=== PATIENT | male | born 1985 | race Caucasian/White ===

== ENCOUNTER 2024-06-30 19:40 | Emergency (ER) | payer BC ==
[2024-06-30] MEDS ORDERED: ONDANSETRON 4 MG/2 ML VIAL ONE (20:01)
[2024-06-30] MEDS ORDERED: CIPROFLOXACIN 400mg IV 0 MG/0 ML BAG IV ONE (20:02)
[2024-06-30] MEDS ORDERED: MORPHINE 4 MG/ML SYR ONE (20:02)
[2024-06-30] MEDS ORDERED: NA CHLORIDE 0.9% 1,000 ML ONE (20:02)
[2024-06-30] MEDS ORDERED: FAMOTIDINE 20 MG/2 ML VIAL IV ONE (20:02)
[2024-06-30] MEDS ORDERED: METRONIDAZOLE 500mg IVPB 0 MG/0 ML BAG IV ONE (20:02)
[2024-06-30 20:28] LABS: Absolute Basophils 0.1 K/uL (0-0.5); Absolute Eosinophils 0.3 K/uL (0-0.5); Absolute Monocytes 0.7 K/uL (0.1-1.3); Basophils % 0.6 % (0-1.3); Eosinophils % 3.2 % (0-4.4); Hematocrit 45.2 % (39.6-49.0); Lymphocytes % 22.2 % (15.3-44.8); MCH 28.2 pg (27.0-35.0); MCHC 35.3 g/dL (32.0-36.0); MCV 79.7 fL (80-100); MPV 8.1 fL (7.6-11.3); Monocytes % 7.3 % (3.3-12.3); Neutrophils % 66.7 % (41.7-73.7); Nucleated Red Blood Cells % 0.1 % (0-0); Platelets 306 thou/uL (152-406); RBC Red Blood Cell Count 5.67 M/uL (4.33-5.43); Red Cell Distribution Width 13.4 % (12.1-15.2)
[2024-06-30 20:45] LABS: Albumin 3.7 g/dL (3.4-5.0); Albumin/Globulin Ratio 0.9 (1.1-1.8); Anion Gap 10.7 mEq/L (5.0-15.0); Bilirubin Total 0.5 mg/dL (0.2-1.0); Globulin 3.9 g/dL (2.3-3.5); Potassium 3.7 mEq/L (3.5-5.1); Protein, Total 7.6 g/dL (6.4-8.2)
--- NOTE | 2024-06-30 21:27 | RAD REPORT ---
EXAMINATION: CT ABDOMEN AND PELVIS WITH CONTRAST CLINICAL INDICATION: Abdominal pain. Rectal mass and bleeding TECHNIQUE: CT abdomen and pelvis was performed, after the administration of 100 cc Isovue-300.. Sagit samira and coronal reconstructions were obtained. One or more of the following dose reduction techniques were used: Automated exposure control, adjustment of the mA and kV according to patient si ze, and iterative reconstruction. Unless otherwise specified, incidental findings do not require dedicated imaging follow-up. [id number]. Oral contrast was not given which limits evaluation of bowel and appendix. COMPARISON: .None FINDINGS: Liver, spleen, pancreas, adrenals and kidneys appear unremarkable No evidence of diverticulitis.. A rectal mass is not seen but can be missed by CT. Normal appendix. Small periumbilical hernia. Large right inguinal hernia contains portion of bladder. Moderate left inguinal hernia contains fat. : IMPRESSION: Large right inguinal hernia contains portion of bladder. Moderate left hernia contains fat
[2024-06-30 22:15] LABS: Specific Gravity > 1.030 (1.005-1.030); Urine Bilirubin NEGATIVE (Negative); Urine Blood Negative (Negative); Urine Clarity Clear (Clear); Urine Color Light-Yellow (Yellow); Urine Glucose NEGATIVE (Negative); Urine Ketones NEGATIVE (Negative); Urine Microscopic Reflex YN NO UMIC; Urine Nitrite NEGATIVE (Negative); Urine Protein NEGATIVE (Negative); Urine Urobilinogen Normal (Normal); Urine pH 6.5 (5.0-7.0)
--- NOTE | 2024-06-30 22:15 | ER ---
Nurse's Notes [facility] Name: Jenaro Wheat Age: 38 yrs Sex: Male : 1985 Arrival Date: 06/30/2024 Time: 19:40 Bed 12 Private MD: Diagnosis: GI Bleed/ Gastrointestinal hemorrhage, unspecified;Episodic rectal bleeding, Internal Hemorrhoids, Bilateral Inguinal Hernias Presentation: 06/30 19:53 Chief complaint: Patient states: rectal bleeding since this afternoon...will not stop, br2 seeping through clothes. hx of hemorroids in the past and colon polyps. Coronavirus screen: Client denies travel out of the [place] in the last 14 days. Ebola Screen: Patient denies exposure to infectious person. Patient denies travel to an Ebola-affected area in the 21 days before illness onset. Initial Sepsis Screen: Does the patient meet any 2 criteria? No. Patient's initial sepsis screen is negative. Does the patient have a suspected source of infection? No. Patient's initial sepsis screen is negative. Risk Assessment: Do you want to hurt yourself or someone else? Patient reports no desire to harm self or others. Onset of symptoms was June 30, 2024. 19:53 Method Of Arrival: Ambulatory br2 19:53 Acuity: SANG 3 br2 Triage Assessment: 19:53 General: Appears in no apparent distress. uncomfortable, Behavior is calm, cooperative. br2 Pain: Denies pain. Complains of pain in gluteal cleft. EENT: No signs and/or symptoms were reported regarding the EENT system. Historical: - Allergies: 20:15 NKDA; sp4 - Immunization history:: Adult Immunizations not up to date. - Infectious Disease History:: Denies. - Social history:: Smoking status: Patient/guardian denies using tobacco, Patient uses alcohol, occasionally. - Family history:: not pertinent. Screenin:45 [facility] ED Fall Risk Assessment (Adult) History of falling in the last 3 months, br2 including since admission No falls in past 3 months (0 pts) Confusion or Disorientation No (0 pts) Intoxicated or Sedated No (0 pts) Impaired Gait No (0 pts) Mobility Assist Device Used No (0 pt) Altered Elimination No (0 pt) Score/Fall Risk Level 0 - 2 = Low Risk Oriented to surroundings. Abuse screen: Denies threats or abuse. Denies injuries from another. Nutritional screening: No deficits noted. Tuberculosis screening: No symptoms or risk factors identified. Assessment: 19:45 Reassessment: Patient and/or family updated on plan of care and expected duration. Pain br2 level reassessed. Patient is alert, oriented x 3, equal unlabored respirations, skin warm/dry/pink. General: Appears uncomfortable, Behavior is calm, cooperative. Pain: Denies pain. Neuro: José Agitation-Sedation Scale (RASS): 0 - Alert and Calm Level of Consciousness is awake, alert, obeys commands, Oriented to person, place, time, situation. Cardiovascular: Capillary refill < 3 seconds. Respiratory: Airway is patent Respiratory effort is even, unlabored, Respiratory pattern is regular, symmetrical. GI: Reports rectal bleeding. : No signs and/or symptoms were reported regarding the genitourinary system. EENT: No signs and/or symptoms were reported regarding the EENT system. Derm: No signs and/or symptoms reported regarding the dermatologic system. Musculoskeletal: Circulation, motion, and sensation intact. Capillary refill < 3 seconds, Range of motion: intact in all extremities. 22:12 Reassessment: No changes from previously documented assessment. Patient and/or family br2 updated on plan of care and expected duration. Pain level reassessed. Patient is alert, oriented x 3, equal unlabored respirations, skin warm/dry/pink. Patient denies pain at this time. Vital Signs: 19:53 BP 165 / 105; Pulse 104; Resp 18; Temp 97.5; Pulse Ox 97% on R/A; Weight 108.86 kg; br2 Height 6 ft. 3 in. ; Pain 0/10; 21:39 BP 151 / 92; Pulse 77; Resp 18 S; Pulse Ox 100% on R/A; Pain 0/10; br2 22:28 BP 140 / 84; Pulse 70; Resp 18 S; Pulse Ox 100% on R/A; Pain 0/10; br2 19:53 Body Mass Index 30.00 (108.86 kg, 190.5 cm) br2 19:53 Pain Scale: Adult br2 21:39 Pain Scale: Adult br2 22:28 Pain Scale: Adult br2 Lacey Coma Score: 20:15 Eye Response: spontaneous(4). Motor Response: obeys commands(6). Verbal Response: sp4 oriented(5). Total: 15. ED Course: 19:43 Patient arrived in ED. ra3 19:45 Placed in gown. Bed in low position. Call light in reach. Side rails up X 1. Provided br2 Education on: plan of care. 19:46 Ophelia Kerns, RN is Primary Nurse. br2 19:48 Guy Patel MD is Attending Physician. ketty 19:53 Arm band placed on. br2 19:56 Triage completed. br2 20:02 Attending Physician role handed off by Guy Patel MD sp4 20:02 Lionel Begum MD is Attending Physician. sp4 20:29 Inserted saline lock: 20 gauge in right antecubital area, using aseptic technique. br2 Blood collected. Flushed with 10 mL NS. 20:30 CMP Sent. br2 20:30 Lipase Sent. br2 21:04 CT Abd/Pelvis - IV Contrast Only In Process Unspecified. EDMS 22:13 Man Mello MD is Referral Physician. sp4 22:27 IV discontinued, intact, bleeding controlled, No redness/swelling at site. Pressure br2 dressing applied. 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 br2 Administered Medications: 20:11 Not Given (Physician Discretion): [id number] mg 100 ml IVPB at 200 ml/hr once sp4 over 30 mins 20:12 CANCELLED (Physician Discretion): morphineor iv 4 mg IVP once over 4 mins sp4 20:12 CANCELLED (Physician Discretion): [id number] mg 200 ml IVPB once over 60 mins sp4 20:29 Drug: Famotidine IVP 20 mg IVP once; dilute with 10 mL 0.9% NaCl; give over 2 minutes br2 Route: IVP; Site: right antecubital; 22:30 Follow up: Response: No adverse reaction br2 20:29 Drug: Ondansetron IVP 4 mg IVP once; over 2 minutes Route: IVP; Site: right antecubital;br2 22:30 Follow up: Response: No adverse reaction br2 20:29 Drug: NS 0.9% IV 1000 ml IV at 1 bolus Per protocol; to be given as a bolus over 60 br2 minutes Route: IV; Rate: 1 bolus; Site: right antecubital; 22:30 Follow up: Response: No adverse reaction; IV Intake: 1000ml br2 20:30 Drug: Pantoprazole IVP 80 mg IVP once Route: IVP; Site: right antecubital; br2 22:29 Follow up: Response: No adverse reaction br2 Medication: 22:28 VIS not applicable for this client. br2 Intake: 22:30 IV: 1000ml; Total: 1000ml. br2 Outcome: 22:14 Discharge ordered by spDeclan 22:27 Discharged to home ambulatory, br2 22:27 Condition: stable 22:27 Discharge instructions given to patient, Instructed on discharge instructions, follow up and referral plans. Demonstrated understanding of instructions, follow-up care, 22:29 Patient left the ED. br2 Signatures: Dispatcher [employer] EDGuy Kennedy MD MD cha Potepalov, Sergey, MD MD sp4 Jeri Kingsley ra3 Ophelia Kerns RN RN br2
--- NOTE | 2024-06-30 22:15 | EDPHYS ---
Physician Documentation [facility] Name: Jenaro Wheat Age: 38 yrs Sex: Male : 1985 Arrival Date: 06/30/2024 Time: 19:40 Bed 12 Private MD: ED Physician Lionel Begum HPI: 06/30 20:02 This 38 yrs old Male presents to ER via Ambulatory with complaints of Rectal sp4 Bleeding. 20:13 38-year-old male who is basically healthy but suffers from intermittent rectal sp4 bleeding. Patient developed sporadic rectal bleeding approximately 4 years ago while at [place]. Patient had several colonoscopies last one 1 year ago at [facility] that discovered some internal hemorrhoids but otherwise no other problems. Today bleeding has worsened patient reports moderate bleeding that is painless. . Historical: - Allergies: 20:15 NKDA; sp4 - Immunization history:: Adult Immunizations not up to date. - Infectious Disease History:: Denies. - Social history:: Smoking status: Patient/guardian denies using tobacco, Patient uses alcohol, occasionally. - Family history:: not pertinent. ROS: 20:15 Constitutional: Negative for fever, chills, and weight loss, positive painless rectal sp4 bleeding 20:15 All other systems are negative, Exam: 20:15 Constitutional: This is a well developed, well nourished patient who is awake, alert, sp4 and in no acute distress. Head/Face: Normocephalic, atraumatic. Eyes: Pupils equal round and reactive to light, extra-ocular motions intact. Lids and lashes normal. Conjunctiva and sclera are not injected. Cornea within normal limits. Periorbital areas with no swelling, redness, or edema. ENT: Nares patent. No nasal discharge, no septal abnormalities noted. Tympanic membranes are normal and external auditory canals are clear. Oropharynx with no redness, swelling, or masses, exudates, or evidence of obstruction, uvula midline. Mucous membranes moist. Neck: Trachea midline, no thyromegaly or masses palpated, and no cervical lymphadenopathy. Supple, full range of motion without nuchal rigidity, or vertebral point tenderness. Chest/axilla: Normal chest wall appearance and motion. Nontender with no deformity. No lesions are appreciated. Cardiovascular: Regular rate and rhythm with a normal S1 and S2. No gallops, murmurs, or rubs. Normal PMI, no JVD. No pulse deficits. Respiratory: Lungs have equal breath sounds bilaterally, clear to auscultation and percussion. No rales, rhonchi or wheezes noted. No increased work of breathing, no retractions or nasal flaring. Abdomen/GI: Soft, with normal bowel sounds. No distension or tympany. No guarding or rebound. No evidence of tenderness throughout. Back: No spinal tenderness. No costovertebral tenderness. Male : Normal genitalia with no discharge or lesions. Positive for dark red blood per rectum , associated with blood clots also positive for appendage like lesion possibly internal hemorrhoid. No signs of fissures no signs of external hemorrhoids. Normal anal tone Skin: Warm, dry with normal turgor. Normal color with no rashes, no lesions, and no evidence of cellulitis. MS/ Extremity: Pulses equal, no cyanosis. Neurovascular intact. Full, normal range of motion. Neuro: Awake and alert, GCS 15, oriented to person, place, time, and situation. Cranial nerves II-XII grossly intact. Motor strength 5/5 in all extremities. Sensory grossly intact. Psych: Awake, alert, with orientation to person, place and time. Behavior, mood, and affect are within normal limits Vital Signs: 19:53 BP 165 / 105; Pulse 104; Resp 18; Temp 97.5; Pulse Ox 97% on R/A; Weight 108.86 kg; br2 Height 6 ft. 3 in. ; Pain 0/10; 21:39 BP 151 / 92; Pulse 77; Resp 18 S; Pulse Ox 100% on R/A; Pain 0/10; br2 22:28 BP 140 / 84; Pulse 70; Resp 18 S; Pulse Ox 100% on R/A; Pain 0/10; br2 19:53 Body Mass Index 30.00 (108.86 kg, 190.5 cm) br2 19:53 Pain Scale: Adult br2 21:39 Pain Scale: Adult br2 22:28 Pain Scale: Adult br2 Lacey Coma Score: 20:15 Eye Response: spontaneous(4). Motor Response: obeys commands(6). Verbal Response: sp4 oriented(5). Total: 15. MDM: 19:48 Medical Screening Exam initiated ketty 22:11 ED course: EXAMINATION: CTABDOMEN AND PELVIS WITH CONTRAST CLINICAL INDICATION: sp4 Abdominal pain. Rectal mass and bleeding TECHNIQUE: CT abdomen and pelvis was performed, after the administration of 100 cc Isovue-300.. Sagittal and coronal reconstructions were obtained. One or more of the following dose reduction techniques were used: Automated exposure control, adjustment of the mA and kV according to patient size, and iterative reconstruction. Unless otherwise specified, incidental findings do not require dedicated imaging follow-up. [id number]. Oral contrast was not given which limits evaluation of bowel and appendix. COMPARISON: .None FINDINGS: Liver, spleen, pancreas, adrenals and kidneys appear unremarkable No evidence of diverticulitis.. A rectal mass is not seen but can be missed by CT. Normal appendix. Small periumbilical hernia. Large right inguinal hernia contains portion of bladder. Moderate left inguinal hernia contains fat. : IMPRESSION: Large right inguinal hernia contains portion of bladder. Moderate left hernia contains fat . 07/01 01:47 Differential diagnosis: hemorrhoids, fissure, abscess, pilonidal cyst, condyloma. Data sp4 reviewed: vital signs, nurses notes, lab test result(s), radiologic studies, CT scan. Consideration of Admission/Observation Escalation of care including admission/observation considered. ED course: Based on examination with suspect internal hemorrhoid with bleeding. Patient was referred to Dr. Mello here for examination in the office and further management. Additional discovery was made of bilateral inguinal hernias. Patient was also referred to Dr. Mello here for hernia repairs.. 06/30 19:51 Order name: CBC with Diff; Complete Time: 21:51 [facility] 06/30 19:51 Order name: CMP; Complete Time: 21:51 ketty 06/30 19:51 Order name: Lipase; Complete Time: 21:51 ketty 06/30 19:51 Order name: Urinalysis w/ reflexes; Complete Time: 05:16 [facility] 06/30 20:12 Order name: CT Abd/Pelvis - IV Contrast Only; Complete Time: 21:51 sp4 06/30 19:51 Order name: IV Saline Lock; Complete Time: 20:30 [facility] 06/30 19:51 Order name: Labs collected and sent; Complete Time: 20:30 [facility] Administered Medications: 06/30 20:11 Not Given (Physician Discretion): [id number] mg 100 ml IVPB at 200 ml/hr once sp4 over 30 mins 20:12 CANCELLED (Physician Discretion): morphineor iv 4 mg IVP once over 4 mins sp4 20:12 CANCELLED (Physician Discretion): [id number] mg 200 ml IVPB once over 60 mins sp4 20:29 Drug: Famotidine IVP 20 mg IVP once; dilute with 10 mL 0.9% NaCl; give over 2 minutes br2 Route: IVP; Site: right antecubital; 22:30 Follow up: Response: No adverse reaction br2 20:29 Drug: Ondansetron IVP 4 mg IVP once; over 2 minutes Route: IVP; Site: right antecubital;br2 22:30 Follow up: Response: No adverse reaction br2 20:29 Drug: NS 0.9% IV 1000 ml IV at 1 bolus Per protocol; to be given as a bolus over 60 br2 minutes Route: IV; Rate: 1 bolus; Site: right antecubital; 22:30 Follow up: Response: No adverse reaction; IV Intake: 1000ml br2 20:30 Drug: Pantoprazole IVP 80 mg IVP once Route: IVP; Site: right antecubital; br2 22:29 Follow up: Response: No adverse reaction br2 Disposition Summary: 06/30/24 22:14 Discharge Ordered Problem: new sp4 Symptoms: have improved sp4 Condition: Stable sp4 Diagnosis - GI Bleed/ Gastrointestinal hemorrhage, unspecified sp4 - Episodic rectal bleeding, Internal Hemorrhoids, Bilateral Inguinal Hernias sp4 Followup: sp4 - With: Man Mello MD - When: 7 - 10 days - Reason: Recheck today's complaints Discharge Instructions: - Discharge Summary Sheet sp4 - Rectal Bleeding sp4 - Inguinal Hernia, Adult, [id number] sp4 Forms: - Patient Portal Instructions sp4 Signatures: Dispatcher [employer] EDGuy Kennedy MD MD cha Potepalov, Sergey, MD MD sp4 Ophelia Kerns RN RN br2 Corrections: (The following items were deleted from the chart) 20:12 19:51 morphine IVP or IV 4 mg IVP once over 4 mins ordered. ketty sp4 20:12 19:51 Ciprofloxacin IVPB 400 mg 200 ml IVPB once over 60 mins ordered. ketty sp4 20:55 19:52 Abdomen Pelvis W Con+CT.RAD.BRZ ordered. EDMS EDMS
[2024-06-30 22:53] VITALS: TEMP 97.5
[2024-06-30 23:04] VITALS: O2SAT 100
[2024-06-30 23:06] VITALS: BP 151/92
== END 2024-06-30 22:29 | disposition home or self-care (01) ==
LOC: ER 19:40
DX: K92.2 Gastrointestinal hemorrhage, unspecified (principal); K64.8 Other hemorrhoids; K40.20 Bilateral inguinal hernia, without obstruction or gangrene, not specified as recurrent
CPT/HCPCS: 85025; 36415; 81003; 83690; 80053; 74177; 96375; 96374; 99284; Q9967; J2405; J7030; J0744

== ENCOUNTER 2024-07-12 11:12 | Day surgery (SDC) | payer BC ==
[2024-07-12] MEDS: Ringers Lactate 1,000 ML IV ONE (11:45)
[2024-07-12] MEDS ORDERED: ONDANSETRON 4 MG/2 ML VIAL ONE (11:47)
[2024-07-12] MEDS ORDERED: propofoL 200 MG/20 ML VIAL IV ONE (11:47)
[2024-07-12] MEDS ORDERED: KETOROLAC 30 MG/ML INJ ONE (11:47)
[2024-07-12] MEDS ORDERED: MIDAZOLAM HCL 2 MG/2 ML INJ ONE (11:47)
[2024-07-12] MEDS ORDERED: FENTANYL CITR 100 MCG/2 ML ONE (11:47)
[2024-07-12] MEDS ORDERED: LIDOCAINE HCL/EPINEPHRINE 20 ML MDV ONE (11:56)
[2024-07-12] MEDS: LIDOCAINE 1% MPF 5 ML VIAL ONE (12:03)
[2024-07-12] MEDS: CEFOXITIN SODIUM 2 GM/VIAL ONE (12:03)
[2024-07-12] MEDS ORDERED: LIDOCAINE JELLY 2% 5 ML SYRINGE TOP ONE (12:10)
[2024-07-12] MEDS ORDERED: MORPHINE 10 MG/ML VIAL ONE (12:48)
--- NOTE | 2024-07-12 13:14 | P.OP ---
Preoperative diagnosis: Internal Anal Hemorrhoids Postoperative diagnosis: Internal Anal Hemorrhoids Primary procedure: Exam under anesthesia Secondary procedure: Excision of LEFT Lateral Column Hemorrhoids Anesthesia: GETA + Local Estimated blood loss: <10cc Specimen: Hemorrhoids Findings: Grade III Internal Anal Hemorrhoids Complications: None Transferred to: Recovery Room Condition: Good
--- NOTE | 2024-07-12 14:22 | OP ---
Date of Procedure: 07/12/2024 Surgeon: Man Mello MD, Preoperative Diagnosis: Internal anal hemorrhoids. Postoperative Diagnoses: Internal anal hemorrhoids. Procedure Performed: 1.Exam under anesthesia. 2.Excision of left lateral column hemorrhoids. Anesthesia: General endotracheal plus local with 1% lidocaine with epinephrine. Estimated Blood Loss: 2 cc. Specimen: Hemorrhoids. Findings: Grade 3 internal anal hemorrhoids noted. Complications: None. Disposition: The patient transferred to recovery room in good condition. Procedure In Detail: After informed consent was obtained, patient was brought to the operating room, prepped and draped in the usual sterile fashion. After adequate anesthesia was achieved, I performe d sequential dilatation of the anal vault using progressively larger anoscopes ultimately visualizing a left lateral enlarged grade 3 internal hemorrhoid with evidence of recent prolapse and hemorrhage. I demarcated the anoderm mucosa with the electrocautery down through that tissue ultimately separat ing the anoderm from the muscularis underneath using blunt dissection. After this was performed, the hemorrhoid was removed using the LigaSure device, ligating the blood vessel at this point, sent it o ff for pathologic examination. The left lateral column hemorrhoids were removed. The area was copio usly irrigated and then the mucosa over the top was imbricated and closed using a running 3-0 chromic suture with good approximation of tissues. No hemostatic maneuvers were required at the end of the procedure. The area was copiously irrigated once again. The other anal hemorrhoid columns were insp ected and found to be small, grade 1 internal hemorrhoids, at this point, without need for any interv ention at this point. I then placed a Gelfoam soaked in 2% lidocaine into the anal canal slightly pr otruding from the anal canal to allow for application in the area and a sterile dressing was placed o mode top. The patient tolerated the procedure without incident or complication, transferred to PACU i n good condition. All counts were correct at the end of the case. TK/MODL Voice ID: [id number] Report ID: [id number]
--- NOTE | 2024-07-13 11:59 | EKG ---
Test Date: 2024-07-11 Test Time: 09:40:48 Sales And Distribution Clerk: CHARLIE MEASUREMENT RESULTS: Intervals: Rate: 64 WA: 128 QRSD: 90 QT: 384 QTc: 396 [place]: P: 49 WA: 128 QRS: 53 T: 55 INTERPRETIVE STATEMENTS: Normal sinus rhythm Normal ECG No previous ECG available for comparison Electronically Signed On 07-13-24 11:57:03 SERVICE DESK DIRECTOR by Clemente Welch
[2024-07-14 02:13] VITALS: BP 144/85; TEMP 98; O2SAT 96
== END 2024-07-12 14:38 | disposition home or self-care (01) ==
LOC: OR 11:12
PROVIDERS: ATTEND Surgery
PROC: 06BY0ZC Excision of Hemorrhoidal Plexus, Open Approach (ICD-10-PCS; principal; 2024-07-12 13:15)
DX: K64.8 Other hemorrhoids (principal)
CPT/HCPCS: 88304; 93005; J0694; J2003; J2250; J2405; J2704; J3010; J7120

== ENCOUNTER → 2024-08-10 | Day surgery (SDC) | payer BC ==
[2024-08-08 12:44] LABS: Anion Gap 8.8 mEq/L (5.0-15.0); Potassium 3.8 mEq/L (3.5-5.1)
[~2024-08-10] MED LIST: FENTANYL CITR 100 MCG/2 ML ONE; GLYCOPYRROLATE 0.2 MG/ML SYR ONE; HYDROMORPHONE HCL 1 MG/ML INJ ONE; KETOROLAC 30 MG/ML INJ ONE; LIDOCAINE 2% MPF 5 ML VIAL ONE; MIDAZOLAM HCL 2 MG/2 ML INJ ONE; ONDANSETRON 4 MG/2 ML VIAL ONE; ROCURONIUM 50 MG/5 ML VIAL IV ONE; dexAMETHasone 10 MG/ML VIAL ONE; propofoL 200 MG/20 ML VIAL IV ONE
[2024-08-10] MEDS: Ringers Lactate 1,000 ML IV ONE ×2 (09:50→13:00)
[2024-08-10] MEDS: CEFAZOLIN SODIUM 2 GM/VIAL ONE (11:19)
[2024-08-10] MEDS: LIDOCAINE HCL/EPINEPHRINE 20 ML MDV ONE (11:43)
--- NOTE | 2024-08-10 13:32 | P.OP ---
Preoperative diagnosis: Bilateral Inguinal Hernias Postoperative diagnosis: Bilateral Inguinal Hernias Primary procedure: Open Bilateral Inguinal Hernia Repair with Mesh Anesthesia: GETA + Local Estimated blood loss: <5cc Specimen: Cord Lipoma Findings: Incarcerated Bladder, Small Bowel Complications: None Implants: Large Bard Perfix Plug and Patch x 2 Transferred to: Recovery Room Condition: Good
[2024-08-10] MEDS: HYDROMORPHONE HCL 1 MG/ML INJ ONE (14:23)
[2024-08-10 14:29] VITALS: O2SAT 98
[2024-08-10] MEDS: HYDROCODONE/APAP 10/325 TAB ONE (15:00)
[2024-08-10 17:10] VITALS: BP 144/85; TEMP 97.2
--- NOTE | 2024-08-11 00:35 | OP ---
Date of Procedure: 08/10/2024 Surgeon: Man Mello MD, Preoperative Diagnosis: Bilateral inguinal hernias. Postoperative Diagnosis: Bilateral inguinal hernias. Procedure Performed: Open bilateral inguinal hernia repair with mesh. Anesthesia: General endotracheal plus local, 1% lidocaine with epinephrine. Estimated Blood Loss: Less than 5 cc. Specimen: Cord lipoma. Findings: 1. Bilateral external oblique aponeurosis were thin and alveolar. 2. Bladder was contained within the inguinal hernia. 3. 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 Complications: None. Implants: Bard PerFix Plug and Patch hernia repair system. Large plug and patch utilized. Disposition: The patient was transferred to recovery room in good condition. Procedure In Detail: After informed consent was obtained, the patient was brought to the operating r oom, prepped in the usual sterile fashion. After adequate anesthesia was achieved, I made an inguina l incision on the left side down to subcutaneous tissues, ultimately down through the Camper fat and Vick fascia to expose the external oblique aponeurosis. This was found to be quite thin and alveol ar. At this point, I opened this sharply with a 15 blade and opened it to the deep ring using Metzen micky scissors. It was significantly thin and alveolar, however, requiring minimal dissection in this area. I encircled the spermatic cord and structures, which were in close apposition to the inguinal hernia contents which were noted. After encircling the spermatic cord and structures, I performed a careful dissection to remove the hernia contents, which included Evans type hernia with partial po rtion of the small bowel wall, which was evident in this area. This was reduced in the normal anatom ic position. There appeared to be no injury or discoloration to the small bowel. It was quite easy to reduce at this point. After this was completed, the hernia sac was imbricated and placed back in the preperitoneal space. I then palpated the area on the left side and deployed a large Bard PerFix plug into the preperitoneal space. I unfurled it in its entirety and secured it circumferentially ar ound using interrupted 2-0 PDS sutures with good apposition. The patient was placed in head up posit ion, Valsalva was performed, and no protrusion was appreciated at this point. At this point, I place d the hernia patch down securing it to the pubic tubercle after sizing it appropriately and ultimatel y reconstructed the deep inguinal ring with the same said 2-0 PDS suture. I secured it to the medial and lateral aspects of the undersurface of the inguinal ligament and the internal oblique aponeurosi s. After this was performed, I closed the residual external oblique aponeurosis, Camper fat, and Sca rpa fascia using a running 3-0 Vicryl suture; and the deep dermal plane was closed using same said 3- 0 Vicryl suture; and the skin was closed with a 4-0 Monocryl in a running fashion. Dermabond was yarelis arlette over top. I made an inguinal incision on the right side down to subcutaneous tissues, ultimately down through t he Camper fat and Vick fascia to expose the external oblique aponeurosis. This was found to be nima te thin and alveolar. At this point, I opened this sharply with a 15 blade and opened it to the deep ring using Metzenbaum scissors. It was significantly thin and alveolar, however, requiring minimal dissection in this area. I encircled the spermatic cord and structures, which were in close appositi on to the inguinal hernia contents which were noted. After encircling the spermatic cord and structu res, I performed a careful dissection to remove the hernia contents, which included the bladder, whic h was evident in this area. This was reduced in the normal anatomic position. There appeared to be no injury or discoloration to the bladder. It was quite easy to reduce at this point. After this wa s completed, the hernia sac was imbricated and placed back in the preperitoneal space. I then palpat ed the area on the right side and deployed a large Bard PerFix plug into the preperitoneal space. I unfurled it in its entirety and secured it circumferentially around using interrupted 2-0 PDS sutures with good apposition. The patient was placed in head up position, Valsalva was performed, and no pr otrusion was appreciated at this point. At this point, I placed the hernia patch down securing it to the pubic tubercle after sizing it appropriately and ultimately reconstructed the deep inguinal ring with the same said 2-0 PDS suture. I secured it to the medial and lateral aspects of the undersurfa ce of the inguinal ligament and the internal oblique aponeurosis. After this was performed, I closed the residual external oblique aponeurosis, Camper fat, and Vick fascia using a running 3-0 Vicryl suture; and the deep dermal plane was closed using same said 3-0 Vicryl suture; and the skin was clos ed with a 4-0 Monocryl in a running fashion. Dermabond was placed over top. All counts were correct at the end of the case. KERMIT/ORALIA Voice ID: [id number] Report ID: [id number]
== END | disposition home or self-care (01) ==
LOC: OR 09:18
PROVIDERS: ATTEND Surgery
PROC: 0YUA0JZ Supplement Bilateral Inguinal Region with Synthetic Substitute, Open Approach (ICD-10-PCS; principal; 2024-08-10 12:00)
DX: K40.20 Bilateral inguinal hernia, without obstruction or gangrene, not specified as recurrent (principal)
CPT/HCPCS: 80048; 36415; 88302; 49505; J2704; J2003; J2250; J3010; J1100; J1171 ×2; J2405; J7120 ×2